=== PATIENT | female | born 1955 | race Two or more races ===

== ENCOUNTER → 2017-08-17 | Outpatient (CLI) | payer OTHER ==
[~2017-08-17] MED LIST: INSU100V13 SC
[2017-08-17 09:45] LABS: HEMATOCRIT 45.9 % (34.6-47.8); HEMOGLOBIN 15.8 g/dL (11.7-16.4); WHITE BLOOD COUNT 7.7 x10^3/uL (3.4-10)
[2017-08-17 09:56] LABS: ASPARTATE AMINO TRANSFERASE 14 U/L (15-37); BLOOD UREA NITROGEN 23 mg/dL (7-18)
== END | disposition home or self-care (01) ==
LOC: LAB 09:21
PROVIDERS: ATTEND Family Medicine
DX: E11.40 Type 2 diabetes mellitus with diabetic neuropathy, unspecified (principal); E55.9 Vitamin D deficiency, unspecified; E78.5 Hyperlipidemia, unspecified; I10 Essential (primary) hypertension; R53.83 Other fatigue
CPT/HCPCS: 36415; 80053; 80061; 82043; 82306; 83036; 84443; 85025

== ENCOUNTER 2017-12-14 22:54 | Emergency (ER) | payer OTHER ==
[~2017-12-14] VITALS: Ht 149.9 cm; Wt 60.8 kg
[2017-12-14] MEDS ORDERED: ACETAMINOPHEN 325 MG TABLET ONE (23:29)
[2017-12-14] MEDS ORDERED: ACETAMINOPHEN 500 MG TABLET PO ONE (23:30)
[2017-12-14 23:33] LABS: RAPID INFLUENZA A Negative (Negative); RAPID INFLUENZA B Negative (Negative)
[2017-12-14 23:38] LABS: BASOPHILS # (AUTO) 0.02 x10^3/uL (0-0.1); BASOPHILS % (AUTO) 0 % (0-1); EOSINOPHILS # (AUTO) 0.02 x10^3/uL (0-0.4); EOSINOPHILS % (AUTO) 0 % (1-7); LYMPHOCYTES # (AUTO) 1.28 x10^3/uL (1-3.4); LYMPHOCYTES % (AUTO) 29 % (22-44); MD NO; MEAN CORPUSCULAR HEMOGLOBIN 30.6 pg (27.0-34.8); MEAN CORPUSCULAR HGB CONC 34.8 g/dL (32.4-35.8); MEAN CORPUSCULAR VOLUME 87.9 fL (80-100); MEAN PLATELET VOLUME 7.9 fL (7.4-10.4); MONOCYTES # (AUTO) 0.46 x10^3/uL (0.2-0.8); MONOCYTES % (AUTO) 10 % (2-9); NEUTROPHILS # (AUTO) 2.62 x10^3/uL (1.8-6.8); NEUTROPHILS % (AUTO) 60 % (42-75); PLATELET COUNT 213 x10^3/uL (130-400); RED BLOOD COUNT 4.71 x10^6/uL (3.82-5.3); RED CELL DISTRIBUTION WIDTH 12.7 % (9.6-15.2)
[2017-12-14 23:48] LABS: ALBUMIN 3.1 g/dL (3.4-5.0); ANION GAP 14 mmol/L (5-15); CALCIUM 8.4 mg/dL (8.5-10.1); CHLORIDE 103 mmol/L (98-107); CREATININE 0.75 mg/dL (0.55-1.02)
[2017-12-15] MEDS ORDERED: INSULIN REGULAR 100 UNITS/ML, 3ML VIAL ONE (00:18)
[2017-12-15 00:24] LABS: ACETONE, SERUM Moderate(40mg/dL) mg/dL (Negative)
[2017-12-15] MEDS ORDERED: SODIUM CHLORIDE FLUSH 10ML SYR IVF ONE (00:30)
[2017-12-15] MEDS ORDERED: SODIUM CHLORIDE 0.9% 1,000ML IVBOLUS ONE (00:30)
[2017-12-15] MEDS ORDERED: INSULIN REGULAR 100 UNITS/ML, 3ML VIAL IVPush ONE (00:30)
[2017-12-15 01:59] VITALS: BP 105/50
== END 2017-12-15 02:01 | disposition home or self-care (01) ==
LOC: ED 23:59
DX: B34.9 Viral infection, unspecified (principal); E11.65 Type 2 diabetes mellitus with hyperglycemia
CPT/HCPCS: 36415; 71046; 80048; 82010; 82040; 82800; 82962; 85025; 87400; 93005; 96361; 96374; 99285; J7030

== ENCOUNTER → 2017-12-20 | Outpatient (CLI) | payer OTHER | END | disposition home or self-care (01) | LOC: CVU 07:35 | PROVIDERS: ATTEND Internal Medicine Cardiovascular Disease | DX: I10 Essential (primary) hypertension (principal); E11.9 Type 2 diabetes mellitus without complications | CPT/HCPCS: 93306 ==

== ENCOUNTER → 2018-01-10 | Outpatient (CLI) | payer OTHER ==
[2018-01-10 10:13] LABS: ALANINE AMINOTRANSFERASE 17 U/L (12-78); ALBUMIN 3.6 g/dL (3.4-5.0); ANION GAP 8 mmol/L (5-15); CALCIUM 8.4 mg/dL (8.5-10.1); CHLORIDE 104 mmol/L (98-107); CHOLESTEROL, TOTAL 199 mg/dL (140-239); CREATININE 0.75 mg/dL (0.55-1.02); TRIGLYCERIDES 145 mg/dL (50-200); VLDL CHOLESTEROL 29 mg/dL (0-25)
[2018-01-10 10:15] LABS: BASOPHILS # (AUTO) 0.03 x10^3/uL (0-0.1); BASOPHILS % (AUTO) 1 % (0-1); EOSINOPHILS # (AUTO) 0.07 x10^3/uL (0-0.4); EOSINOPHILS % (AUTO) 1 % (1-7); LYMPHOCYTES # (AUTO) 1.77 x10^3/uL (1-3.4); LYMPHOCYTES % (AUTO) 34 % (22-44); MD NO; MEAN CORPUSCULAR HEMOGLOBIN 30.6 pg (27.0-34.8); MEAN CORPUSCULAR HGB CONC 34.2 g/dL (32.4-35.8); MEAN CORPUSCULAR VOLUME 89.7 fL (80-100); MEAN PLATELET VOLUME 7.9 fL (7.4-10.4); MONOCYTES # (AUTO) 0.38 x10^3/uL (0.2-0.8); MONOCYTES % (AUTO) 7 % (2-9); NEUTROPHILS # (AUTO) 2.98 x10^3/uL (1.8-6.8); NEUTROPHILS % (AUTO) 57 % (42-75); PLATELET COUNT 261 x10^3/uL (130-400); RED BLOOD COUNT 4.68 x10^6/uL (3.82-5.3); RED CELL DISTRIBUTION WIDTH 13.4 % (9.6-15.2)
[2018-01-10 10:20] LABS: HEMOGLOBIN A1C 11.5 % (4.2-6.3)
[2018-01-10 10:24] LABS: ALKALINE PHOSPHATASE 89 U/L (45-117); BILIRUBIN,TOTAL 0.6 mg/dL (0.2-1.0); CHOL/HDL RATIO 3.8; HDL CHOL % 27 % (28-40); HDL CHOLESTEROL (DIRECT) 53 mg/dL (40-60); LDL CHOLESTEROL,CALCULATED 117 mg/dL (54-169); LDL/HDL RATIO 2.2 (0.5-3.0); TOTAL PROTEIN 7.3 g/dL (6.4-8.2)
== END | disposition home or self-care (01) ==
LOC: LAB 09:45
PROVIDERS: ATTEND Family Medicine
DX: E11.40 Type 2 diabetes mellitus with diabetic neuropathy, unspecified (principal); I10 Essential (primary) hypertension; E78.5 Hyperlipidemia, unspecified; R53.83 Other fatigue; Z79.4 Long term (current) use of insulin
CPT/HCPCS: 36415; 80053; 80061; 82043; 83036; 84443; 85025

== ENCOUNTER 2018-05-25 20:16 | Emergency (ER) | payer OTHER ==
[~2018-05-25] VITALS: Ht 154.9 cm; Wt 62.4 kg
[2018-05-25] MEDS ORDERED: GEMF600T3 PO (20:28)
[2018-05-25] MEDS ORDERED: INSU100I13 SQ-INSULIN (20:28)
[2018-05-25] MEDS ORDERED: GLIP-142 PO (20:28)
[2018-05-25] MEDS ORDERED: GABA300C10 PO (20:28)
[2018-05-25] MEDS ORDERED: METF500T5 PO (20:28)
[2018-05-25] MEDS ORDERED: OMNIPAQUE 350 MG/ML, 100ML BOTTLE ONE (20:50)
[2018-05-25 20:59] LABS: BASOPHILS # (AUTO) 0.03 x10^3/uL (0-0.1); BASOPHILS % (AUTO) 1 % (0-1); EOSINOPHILS # (AUTO) 0.05 x10^3/uL (0-0.4); EOSINOPHILS % (AUTO) 1 % (1-7); LYMPHOCYTES # (AUTO) 2.58 x10^3/uL (1-3.4); LYMPHOCYTES % (AUTO) 38 % (22-44); MD NO; MEAN CORPUSCULAR HEMOGLOBIN 30.5 pg (27.0-34.8); MEAN CORPUSCULAR HGB CONC 34.5 g/dL (32.4-35.8); MEAN CORPUSCULAR VOLUME 88.4 fL (80-100); MONOCYTES # (AUTO) 0.38 x10^3/uL (0.2-0.8); MONOCYTES % (AUTO) 6 % (2-9); NEUTROPHILS # (AUTO) 3.78 x10^3/uL (1.8-6.8); NEUTROPHILS % (AUTO) 55 % (42-75); PLATELET COUNT 249 x10^3/uL (130-400); RED BLOOD COUNT 4.33 x10^6/uL (3.82-5.3); RED CELL DISTRIBUTION WIDTH 12.8 % (9.6-15.2)
[2018-05-25] MEDS ORDERED: SODIUM CHLORIDE FLUSH 10ML SYR IVF ONE (21:00)
[2018-05-25 21:11] LABS: ALANINE AMINOTRANSFERASE 19 U/L (12-78); ALBUMIN 3.5 g/dL (3.4-5.0); ANION GAP 11 mmol/L (5-15); CALCIUM 9.1 mg/dL (8.5-10.1); CHLORIDE 100 mmol/L (98-107); CREATININE 0.83 mg/dL (0.55-1.02)
[2018-05-25 21:13] LABS: ALKALINE PHOSPHATASE 99 U/L (45-117); BILIRUBIN,TOTAL 0.4 mg/dL (0.2-1.0); TOTAL PROTEIN 7.4 g/dL (6.4-8.2)
[2018-05-25 21:39] LABS: MICROSCOPIC AUTO
[2018-05-25 21:40] LABS: CULTURE INDICATED? YES
[2018-05-25 21:54] VITALS: BP 124/78
== END 2018-05-25 22:20 | disposition home or self-care (01) ==
LOC: ED 21:47
DX: E11.65 Type 2 diabetes mellitus with hyperglycemia (principal); Z79.84 Long term (current) use of oral hypoglycemic drugs; Z88.6 Allergy status to analgesic agent
CPT/HCPCS: 36415; 70450; 70496; 70498; 80053; 81001; 85025; 87086; 93005; 99285; Q9967

== ENCOUNTER → 2018-06-03 | Outpatient (CLI) | payer OTHER ==
[~2018-06-03] MED LIST changes: +GABA300C10 PO; +GEMF600T3 PO; +GLIP-142 PO; +INSU100I13 SC; +INSU100I13 SQ-INSULIN; +METF500T5 PO
[2018-06-03 11:15] LABS: ALANINE AMINOTRANSFERASE 19 U/L (12-78); ALBUMIN 3.4 g/dL (3.4-5.0); ANION GAP 9 mmol/L (5-15); CALCIUM 9.1 mg/dL (8.5-10.1); CHLORIDE 105 mmol/L (98-107)
[2018-06-03 11:25] LABS: ALKALINE PHOSPHATASE 88 U/L (45-117); BILIRUBIN,TOTAL 0.5 mg/dL (0.2-1.0); TOTAL PROTEIN 7.3 g/dL (6.4-8.2)
[2018-06-03 11:54] LABS: BASOPHILS # (AUTO) 0.03 x10^3/uL (0-0.1); BASOPHILS % (AUTO) 0 % (0-1); EOSINOPHILS # (AUTO) 0.05 x10^3/uL (0-0.4); EOSINOPHILS % (AUTO) 1 % (1-7); LYMPHOCYTES # (AUTO) 2.26 x10^3/uL (1-3.4); LYMPHOCYTES % (AUTO) 37 % (22-44); MD NO; MEAN CORPUSCULAR HEMOGLOBIN 30.3 pg (27.0-34.8); MEAN CORPUSCULAR HGB CONC 34.5 g/dL (32.4-35.8); MEAN CORPUSCULAR VOLUME 87.7 fL (80-100); MEAN PLATELET VOLUME 8.2 fL (7.4-10.4); MONOCYTES # (AUTO) 0.33 x10^3/uL (0.2-0.8); MONOCYTES % (AUTO) 5 % (2-9); NEUTROPHILS # (AUTO) 3.47 x10^3/uL (1.8-6.8); NEUTROPHILS % (AUTO) 57 % (42-75); PLATELET COUNT 256 x10^3/uL (130-400); RED BLOOD COUNT 4.55 x10^6/uL (3.82-5.3)
== END | disposition home or self-care (01) ==
LOC: LAB 10:49
PROVIDERS: ATTEND Otolaryngology Facial Plastic Surgery
DX: R42 Dizziness and giddiness (principal); E11.65 Type 2 diabetes mellitus with hyperglycemia; Z79.84 Long term (current) use of oral hypoglycemic drugs
CPT/HCPCS: 36415; 80053; 84443; 85025

== ENCOUNTER 2018-06-06 13:02 | Emergency (ER) | payer OTHER ==
[~2018-06-06] VITALS: Ht 154.9 cm; Wt 63.4 kg
[~2018-06-06 13:02] MED LIST changes: -INSU100I13 SC
[2018-06-06 14:18] LABS: BASOPHILS # (AUTO) 0.02 x10^3/uL (0-0.1); BASOPHILS % (AUTO) 0 % (0-1); EOSINOPHILS # (AUTO) 0.05 x10^3/uL (0-0.4); EOSINOPHILS % (AUTO) 1 % (1-7); LYMPHOCYTES # (AUTO) 1.87 x10^3/uL (1-3.4); LYMPHOCYTES % (AUTO) 32 % (22-44); MD NO; MEAN CORPUSCULAR HEMOGLOBIN 29.7 pg (27.0-34.8); MEAN CORPUSCULAR HGB CONC 33.8 g/dL (32.4-35.8); MEAN PLATELET VOLUME 8.1 fL (7.4-10.4); MONOCYTES # (AUTO) 0.37 x10^3/uL (0.2-0.8); MONOCYTES % (AUTO) 6 % (2-9); NEUTROPHILS # (AUTO) 3.59 x10^3/uL (1.8-6.8); NEUTROPHILS % (AUTO) 61 % (42-75); PLATELET COUNT 255 x10^3/uL (130-400); RED BLOOD COUNT 4.41 x10^6/uL (3.82-5.3); RED CELL DISTRIBUTION WIDTH 13.1 % (9.6-15.2)
[2018-06-06 14:26] LABS: ANION GAP 6 mmol/L (5-15); CALCIUM 9.3 mg/dL (8.5-10.1); CHLORIDE 105 mmol/L (98-107); CREATININE 0.82 mg/dL (0.55-1.02)
[2018-06-06] MEDS ORDERED: DIAZEPAM 5 MG TABLET PO ONE (14:30)
[2018-06-06] MEDS ORDERED: DIAZEPAM 5 MG TABLET ONE (15:05)
[2018-06-06] MEDS ORDERED: INSU100I13 SC (15:09)
[2018-06-06 15:46] VITALS: BP 137/74
== END 2018-06-06 15:56 | disposition home or self-care (01) ==
LOC: ED 15:50
DX: R42 Dizziness and giddiness (principal); E11.65 Type 2 diabetes mellitus with hyperglycemia
CPT/HCPCS: 36415; 70551; 80048; 85025; 93005; 99285

== ENCOUNTER → 2018-08-20 | Outpatient (CLI) | payer OTHER ==
[~2018-08-20] MED LIST changes: -GEMF600T3 PO; +GEMF600T4 PO; +INSU100I13 SC; +METF500T17 PO; -METF500T5 PO
[2018-08-20 08:27] LABS: ALANINE AMINOTRANSFERASE 21 U/L (12-78); ALBUMIN 3.8 g/dL (3.4-5.0); CHOLESTEROL, TOTAL 130 mg/dL (140-239); TRIGLYCERIDES 185 mg/dL (50-200); VLDL CHOLESTEROL 37 mg/dL (0-25)
[2018-08-20 08:29] LABS: ALKALINE PHOSPHATASE 78 U/L (45-117); BILIRUBIN,TOTAL 0.3 mg/dL (0.2-1.0); CHOL/HDL RATIO 3.3; HDL CHOL % 30 % (28-40); HDL CHOLESTEROL (DIRECT) 39 mg/dL (40-60); LDL CHOLESTEROL,CALCULATED 54 mg/dL (54-169); LDL/HDL RATIO 1.4 (0.5-3.0); TOTAL PROTEIN 7.7 g/dL (6.4-8.2)
[2018-08-20 08:30] LABS: BILIRUBIN, DIRECT < 0.1 mg/dL (0.1-0.2); BILIRUBIN,INDIRECT 0.2 mg/dL (0.0-2.0)
[2018-08-20 09:06] LABS: HEMOGLOBIN A1C 6.9 % (4.2-6.3)
== END | disposition home or self-care (01) ==
LOC: LAB 08:00
PROVIDERS: ATTEND Nurse Practitioner Primary Care
DX: Z12.4 Encounter for screening for malignant neoplasm of cervix (principal); Z12.39 Encounter for other screening for malignant neoplasm of breast; Z12.11 Encounter for screening for malignant neoplasm of colon; Z13.220 Encounter for screening for lipoid disorders; E11.9 Type 2 diabetes mellitus without complications; R42 Dizziness and giddiness; M62.81 Muscle weakness (generalized); E55.9 Vitamin D deficiency, unspecified; R53.83 Other fatigue
CPT/HCPCS: 36415; 80061; 80076; 83036

== ENCOUNTER → 2018-10-10 | Outpatient (CLI) | payer OTHER | END | disposition home or self-care (01) | LOC: LAB 07:59 | PROVIDERS: ATTEND Internal Medicine Endocrinology, Diabetes & Metabolism | DX: E11.65 Type 2 diabetes mellitus with hyperglycemia (principal) | CPT/HCPCS: 36415; 82043; 82570; 82947; 84681 ==

== ENCOUNTER → 2018-11-21 | Outpatient (CLI) | payer OTHER ==
[~2018-11-21] MED LIST changes: +GADOBUTROL 7.5 MMOL/7.5 ML PFS ONE; -GEMF600T4 PO; +GEMF600T8 PO
== END | disposition home or self-care (01) ==
LOC: CFH 08:40
PROVIDERS: ATTEND Specialist
DX: I63.89 Other cerebral infarction (principal); J34.89 Other specified disorders of nose and nasal sinuses
CPT/HCPCS: 70553; A9585

== ENCOUNTER 2019-02-07 09:55 | Emergency (ER) | payer OTHER ==
[~2019-02-07] VITALS: Ht 154.9 cm; Wt 62.9 kg
[~2019-02-07 09:55] MED LIST changes: -GADOBUTROL 7.5 MMOL/7.5 ML PFS ONE
[2019-02-07 10:45] VITALS: BP 138/66
[2019-02-07] MEDS ORDERED: ONDANSETRON ODT 4 MG ONE (10:48)
[2019-02-07 10:54] LABS: ANION GAP 7 mmol/L (5-15); CALCIUM 9.5 mg/dL (8.5-10.1); CHLORIDE 103 mmol/L (98-107); CREATININE 0.72 mg/dL (0.55-1.02)
[2019-02-07 10:58] LABS: MICROSCOPIC AUTO
[2019-02-07 10:59] LABS: CULTURE INDICATED? NO
[2019-02-07] MEDS ORDERED: ONDANSETRON ODT 4 MG PO ONE (11:00)
[2019-02-07 11:36] LABS: BASOPHILS # (AUTO) 0.03 x10^3/uL (0-0.1); BASOPHILS % (AUTO) 1 % (0-1); EOSINOPHILS # (AUTO) 0.04 x10^3/uL (0-0.4); EOSINOPHILS % (AUTO) 1 % (1-7); LYMPHOCYTES # (AUTO) 1.64 x10^3/uL (1-3.4); LYMPHOCYTES % (AUTO) 25 % (22-44); MD NO; MEAN CORPUSCULAR HGB CONC 33.5 g/dL (32.4-35.8); MEAN CORPUSCULAR VOLUME 86.8 fL (80-100); MONOCYTES # (AUTO) 0.24 x10^3/uL (0.2-0.8); MONOCYTES % (AUTO) 4 % (2-9); NEUTROPHILS % (AUTO) 70 % (42-75); PLATELET COUNT 282 x10^3/uL (130-400); RED BLOOD COUNT 4.38 x10^6/uL (3.82-5.3); RED CELL DISTRIBUTION WIDTH 12.9 % (9.6-15.2)
--- NOTE | 2019-02-07 12:34 | NUR ---
DC RN ONLY: Patient/Caregiver given discharge instructions and they have confirmed that they understand the instructions. Patient ambulatory with steady gait.
== END 2019-02-07 12:37 | disposition home or self-care (01) ==
LOC: ED 11:00
DX: H81.392 Other peripheral vertigo, left ear (principal); H81.12 Benign paroxysmal vertigo, left ear; E11.9 Type 2 diabetes mellitus without complications
CPT/HCPCS: 36415; 80048; 81001; 82040; 85025; 93005; 99284; Q0162

== ENCOUNTER 2019-02-20 06:07 | Outpatient (CLI) | payer OTHER ==
[2019-02-20 07:14] LABS: ALBUMIN 3.8 g/dL (3.4-5.0); ANION GAP 7 mmol/L (5-15); CALCIUM 8.5 mg/dL (8.5-10.1); CHLORIDE 108 mmol/L (98-107)
[2019-02-20 07:17] LABS: ALANINE AMINOTRANSFERASE 19 U/L (12-78); ALKALINE PHOSPHATASE 89 U/L (45-117); BILIRUBIN,TOTAL 0.2 mg/dL (0.2-1.0); CHOL/HDL RATIO 3.6; CHOLESTEROL, TOTAL 172 mg/dL (140-239); HDL CHOL % 28 % (28-40); HDL CHOLESTEROL (DIRECT) 48 mg/dL (40-60); LDL CHOLESTEROL,CALCULATED 88 mg/dL (54-169); LDL/HDL RATIO 1.8 (0.5-3.0); TOTAL PROTEIN 7.4 g/dL (6.4-8.2); TRIGLYCERIDES 180 mg/dL (50-200); VLDL CHOLESTEROL 36 mg/dL (0-25)
[2019-02-20 07:18] LABS: BILIRUBIN, DIRECT < 0.1 mg/dL (0.1-0.2)
== END 2019-02-20 23:59 | disposition home or self-care (01) ==
LOC: LAB 06:07
PROVIDERS: ATTEND Nurse Practitioner Primary Care
DX: Z13.220 Encounter for screening for lipoid disorders (principal); Z12.11 Encounter for screening for malignant neoplasm of colon; Z12.4 Encounter for screening for malignant neoplasm of cervix; Z12.39 Encounter for other screening for malignant neoplasm of breast; R53.83 Other fatigue; E11.9 Type 2 diabetes mellitus without complications; M62.81 Muscle weakness (generalized); E55.9 Vitamin D deficiency, unspecified; E83.42 Hypomagnesemia
CPT/HCPCS: 36415; 80053; 80061; 82248

== ENCOUNTER → 2019-05-01 | Outpatient (CLI) | payer OTHER ==
[~2019-05-01] MED LIST changes: +OMNIPAQUE 350 MG/ML, 100ML BOTTLE ONE
== END | disposition home or self-care (01) ==
LOC: CFH 09:08
PROVIDERS: ATTEND Specialist
DX: I63.89 Other cerebral infarction (principal); I65.23 Occlusion and stenosis of bilateral carotid arteries
CPT/HCPCS: 70496; 82565; Q9967

== ENCOUNTER 2019-05-27 07:20 | Outpatient (CLI) | payer OTHER | END 2019-05-27 23:59 | disposition home or self-care (01) | LOC: LAB 07:20 | PROVIDERS: ATTEND Internal Medicine Endocrinology, Diabetes & Metabolism | DX: Z13.220 Encounter for screening for lipoid disorders (principal); E11.9 Type 2 diabetes mellitus without complications; R27.9 Unspecified lack of coordination; R53.83 Other fatigue; E55.9 Vitamin D deficiency, unspecified; Z12.11 Encounter for screening for malignant neoplasm of colon; M62.81 Muscle weakness (generalized); I49.9 Cardiac arrhythmia, unspecified | CPT/HCPCS: 36415; 80061; 80076; 82607 ==

== ENCOUNTER 2019-06-10 07:13 | Outpatient (CLI) | payer OTHER | END 2019-06-10 23:59 | disposition home or self-care (01) | LOC: LAB 07:13 | PROVIDERS: ATTEND Internal Medicine Endocrinology, Diabetes & Metabolism | DX: R42 Dizziness and giddiness (principal) | CPT/HCPCS: 36415; 82024; 82533 ==

== ENCOUNTER 2019-08-24 09:33 | Outpatient (CLI) | payer OTHER ==
[~2019-08-24 09:33] MED LIST changes: -OMNIPAQUE 350 MG/ML, 100ML BOTTLE ONE
== END 2019-08-24 23:59 | disposition home or self-care (01) ==
LOC: RAD 09:33
PROVIDERS: ATTEND Internal Medicine
DX: R11.2 Nausea with vomiting, unspecified (principal)
CPT/HCPCS: 78264; A9541

== ENCOUNTER → 2019-09-24 | Outpatient (CLI) | payer OTHER ==
[2019-09-24 07:27] LABS: BASOPHILS # (AUTO) 0.02 x10^3/uL (0-0.1); BASOPHILS % (AUTO) 0 % (0-1); EOSINOPHILS # (AUTO) 0.04 x10^3/uL (0-0.4); EOSINOPHILS % (AUTO) 1 % (1-7); LYMPHOCYTES # (AUTO) 1.64 x10^3/uL (1-3.4); LYMPHOCYTES % (AUTO) 31 % (22-44); MD NO; MEAN CORPUSCULAR HEMOGLOBIN 29.1 pg (27.0-34.8); MEAN CORPUSCULAR HGB CONC 33.4 g/dL (32.4-35.8); MEAN CORPUSCULAR VOLUME 87.1 fL (80-100); MEAN PLATELET VOLUME 7.8 fL (7.4-10.4); MONOCYTES # (AUTO) 0.34 x10^3/uL (0.2-0.8); MONOCYTES % (AUTO) 6 % (2-9); NEUTROPHILS # (AUTO) 3.27 x10^3/uL (1.8-6.8); NEUTROPHILS % (AUTO) 62 % (42-75); PLATELET COUNT 250 x10^3/uL (130-400); RED BLOOD COUNT 4.89 x10^6/uL (3.82-5.3); RED CELL DISTRIBUTION WIDTH 14.2 % (9.6-15.2)
[2019-09-24 07:36] LABS: ALANINE AMINOTRANSFERASE 19 U/L (12-78); ALBUMIN 3.9 g/dL (3.4-5.0); ANION GAP 3 mmol/L (5-15); CHLORIDE 102 mmol/L (98-107); CREATININE 0.75 mg/dL (0.55-1.02)
[2019-09-24 07:39] LABS: ALKALINE PHOSPHATASE 106 U/L (45-117); BILIRUBIN,TOTAL 0.5 mg/dL (0.2-1.0); TOTAL PROTEIN 7.9 g/dL (6.4-8.2)
== END | disposition home or self-care (01) ==
LOC: LAB 07:13
PROVIDERS: ATTEND Nurse Practitioner
DX: E78.5 Hyperlipidemia, unspecified (principal); E11.65 Type 2 diabetes mellitus with hyperglycemia; F10.20 Alcohol dependence, uncomplicated
CPT/HCPCS: 36415; 80053; 82043; 82570; 85025

== ENCOUNTER 2019-10-06 23:44 | Emergency (ER) | payer OTHER ==
[~2019-10-06] VITALS: Ht 154.9 cm; Wt 62.2 kg
[2019-10-07] MEDS ORDERED: ONDANSETRON 2MG/ML, 2ML ONE (00:11)
[2019-10-07 00:23] LABS: BASOPHILS # (AUTO) 0.02 x10^3/uL (0-0.1); BASOPHILS % (AUTO) 0 % (0-1); EOSINOPHILS # (AUTO) 0.07 x10^3/uL (0-0.4); EOSINOPHILS % (AUTO) 1 % (1-7); LYMPHOCYTES # (AUTO) 1.87 x10^3/uL (1-3.4); LYMPHOCYTES % (AUTO) 33 % (22-44); MD NO; MEAN CORPUSCULAR HEMOGLOBIN 29.6 pg (27.0-34.8); MEAN CORPUSCULAR HGB CONC 33.5 g/dL (32.4-35.8); MEAN CORPUSCULAR VOLUME 88.6 fL (80-100); MEAN PLATELET VOLUME 8.6 fL (7.4-10.4); MONOCYTES # (AUTO) 0.37 x10^3/uL (0.2-0.8); MONOCYTES % (AUTO) 7 % (2-9); NEUTROPHILS # (AUTO) 3.39 x10^3/uL (1.8-6.8); NEUTROPHILS % (AUTO) 59 % (42-75); PLATELET COUNT 244 x10^3/uL (130-400); RED BLOOD COUNT 4.42 x10^6/uL (3.82-5.3); RED CELL DISTRIBUTION WIDTH 13.3 % (9.6-15.2)
[2019-10-07] MEDS ORDERED: SODIUM CHLORIDE 0.9% 1,000ML IVBOLUS ONE (00:30)
[2019-10-07] MEDS ORDERED: ONDANSETRON 2MG/ML, 2ML IVPush ONE (00:30)
[2019-10-07] MEDS ORDERED: SODIUM CHLORIDE FLUSH 10ML SYR IVF ONE (00:30)
[2019-10-07 00:32] LABS: MICROSCOPIC AUTO
[2019-10-07 00:34] LABS: ALANINE AMINOTRANSFERASE 26 U/L (12-78); ALBUMIN 3.6 g/dL (3.4-5.0); ANION GAP 8 mmol/L (5-15); CALCIUM 8.8 mg/dL (8.5-10.1); CHLORIDE 101 mmol/L (98-107); CREATININE 0.96 mg/dL (0.55-1.02)
[2019-10-07 00:37] LABS: ALKALINE PHOSPHATASE 129 U/L (45-117); BILIRUBIN,TOTAL 0.3 mg/dL (0.2-1.0); TOTAL PROTEIN 7.4 g/dL (6.4-8.2)
[2019-10-07 00:44] LABS: CULTURE INDICATED? YES
[2019-10-07] MEDS ORDERED: CEFTRIAXONE PMX 1GM/50ML 50 ML ONE (01:21)
[2019-10-07] MEDS ORDERED: CEFTRIAXONE PMX 1GM/50ML 50 ML IV ONE (01:30)
[2019-10-07] MEDS ORDERED: INSULIN REGULAR 100 UNITS/ML, 3ML VIAL SQ-INSULIN ONE (01:30)
[2019-10-07 01:32] VITALS: BP 122/65
[2019-10-07] MEDS ORDERED: INSULIN SINGLE DOSE, ER ONE ×2 (01:37→01:45)
--- NOTE | 2019-10-07 01:47 | NUR ---
ross rn: meds given per emar, insulin verified with angel arboleda, pt has no other needs. vss/entered. family at bs, updated poc with dc after antibxts.
== END 2019-10-07 02:21 | disposition home or self-care (01) ==
LOC: ED 10-07 02:10
DX: N30.00 Acute cystitis without hematuria (principal); E11.65 Type 2 diabetes mellitus with hyperglycemia; R42 Dizziness and giddiness
CPT/HCPCS: 36415; 80053; 81001; 82962; 85025; 87077; 87086; 87186; 93005; 96361; 96365; 96372; 99284; J0696; J1815; J7030; 96374

== ENCOUNTER → 2019-10-15 | Outpatient (CLI) | payer OTHER | END | disposition home or self-care (01) | LOC: CFH 10:04 | PROVIDERS: ATTEND Nurse Practitioner Primary Care | DX: M81.8 Other osteoporosis without current pathological fracture (principal) | CPT/HCPCS: 77080 ==

== ENCOUNTER 2020-01-08 07:15 | Outpatient (CLI) | payer OTHER ==
[2020-01-08 07:58] LABS: BASOPHILS # (AUTO) 0.02 x10^3/uL (0-0.1); BASOPHILS % (AUTO) 0 % (0-1); EOSINOPHILS # (AUTO) 0.04 x10^3/uL (0-0.4); EOSINOPHILS % (AUTO) 1 % (1-7); LYMPHOCYTES # (AUTO) 1.52 x10^3/uL (1-3.4); LYMPHOCYTES % (AUTO) 32 % (22-44); MD NO; MEAN CORPUSCULAR HEMOGLOBIN 29.4 pg (27.0-34.8); MEAN CORPUSCULAR HGB CONC 33.8 g/dL (32.4-35.8); MEAN CORPUSCULAR VOLUME 86.9 fL (80-100); MEAN PLATELET VOLUME 8.3 fL (7.4-10.4); MONOCYTES # (AUTO) 0.27 x10^3/uL (0.2-0.8); MONOCYTES % (AUTO) 6 % (2-9); NEUTROPHILS # (AUTO) 2.91 x10^3/uL (1.8-6.8); NEUTROPHILS % (AUTO) 61 % (42-75); PLATELET COUNT 239 x10^3/uL (130-400); RED BLOOD COUNT 4.86 x10^6/uL (3.82-5.3); RED CELL DISTRIBUTION WIDTH 12.6 % (9.6-15.2)
[2020-01-08 08:05] LABS: ALBUMIN 3.6 g/dL (3.4-5.0); ANION GAP 10 mmol/L (5-15); CALCIUM 8.7 mg/dL (8.5-10.1); CHLORIDE 102 mmol/L (98-107); CHOLESTEROL, TOTAL 176 mg/dL (140-239)
[2020-01-08 08:11] LABS: CULTURE INDICATED? YES; MICROSCOPIC INDICATED
[2020-01-08 08:31] LABS: % IRON SATURATION 15 % (20-55); ALANINE AMINOTRANSFERASE 16 U/L (12-78); ALKALINE PHOSPHATASE 100 U/L (45-117); BILIRUBIN,TOTAL 0.4 mg/dL (0.2-1.0); CHOL/HDL RATIO 3.5; CREATININE 0.77 mg/dL (0.55-1.02); FOLATE LEVEL 19.1 ng/mL (3.1-17.5); FREE T4 (FREE THYROXINE) 1.31 ng/dL (0.76-1.46); HDL CHOL % 28 % (28-40); HDL CHOLESTEROL (DIRECT) 50 mg/dL (40-60); IRON LEVEL 54 mcg/dL (50-170); LDL CHOLESTEROL,CALCULATED 102 mg/dL (54-169); TOTAL IRON BINDING CAPACITY 359 mcg/dL (250-450); TOTAL PROTEIN 7.5 g/dL (6.4-8.2); TRANSFERRIN 268 mg/dL (200-360); TRIGLYCERIDES 122 mg/dL (50-200); VLDL CHOLESTEROL 24 mg/dL (0-25)
== END 2020-01-08 23:59 | disposition home or self-care (01) ==
LOC: LAB 07:15
PROVIDERS: ATTEND Nurse Practitioner Primary Care
DX: Z23 Encounter for immunization (principal); E11.65 Type 2 diabetes mellitus with hyperglycemia; E78.2 Mixed hyperlipidemia; E55.9 Vitamin D deficiency, unspecified; I95.9 Hypotension, unspecified; R53.83 Other fatigue; R42 Dizziness and giddiness; R53.1 Weakness; Z79.899 Other long term (current) drug therapy; Z79.52 Long term (current) use of systemic steroids
CPT/HCPCS: 36415; 80053; 80061; 81001; 82306; 82607; 82728; 82746; 83036; 83540; 83550; 84207; 84425; 84439; 84443; 84466; 85025; 86376; 86800; 86803; 87086

== ENCOUNTER 2020-01-10 20:44 | Emergency (ER) | payer OTHER ==
[~2020-01-10] VITALS: Ht 154.9 cm; Wt 61.0 kg
[2020-01-10] MEDS ORDERED: SODIUM CHLORIDE 0.9% 1,000ML IVBOLUS ONE (21:30)
[2020-01-10] MEDS ORDERED: MECLIZINE CHEWABLE 25 MG TAB PO ONE (21:30)
[2020-01-10] MEDS ORDERED: ONDANSETRON 2MG/ML, 2ML IVPush ONE (21:30)
[2020-01-10] MEDS ORDERED: ONDANSETRON 2MG/ML, 2ML ONE (21:33)
[2020-01-10] MEDS ORDERED: MECLIZINE CHEWABLE 25 MG TAB ONE (21:34)
[2020-01-10 21:43] LABS: BASOPHILS # (AUTO) 0.01 x10^3/uL (0-0.1); BASOPHILS % (AUTO) 0 % (0-1); EOSINOPHILS # (AUTO) 0.03 x10^3/uL (0-0.4); EOSINOPHILS % (AUTO) 0 % (1-7); LYMPHOCYTES # (AUTO) 0.87 x10^3/uL (1-3.4); LYMPHOCYTES % (AUTO) 13 % (22-44); MD NO; MEAN CORPUSCULAR HEMOGLOBIN 29.3 pg (27.0-34.8); MEAN CORPUSCULAR HGB CONC 33.8 g/dL (32.4-35.8); MEAN CORPUSCULAR VOLUME 86.8 fL (80-100); MEAN PLATELET VOLUME 8.6 fL (7.4-10.4); MONOCYTES # (AUTO) 0.18 x10^3/uL (0.2-0.8); MONOCYTES % (AUTO) 3 % (2-9); NEUTROPHILS # (AUTO) 5.65 x10^3/uL (1.8-6.8); NEUTROPHILS % (AUTO) 84 % (42-75); PLATELET COUNT 210 x10^3/uL (130-400); RED BLOOD COUNT 4.89 x10^6/uL (3.82-5.3); RED CELL DISTRIBUTION WIDTH 12.7 % (9.6-15.2)
--- NOTE | 2020-01-10 21:48 | NUR ---
MEDICATED PER MAR, SAFETY AND FALL PRECAUTIONS IN PLACE, CALL LIGHT PLACED WITHIN REACH. FAMILY AT BEDSIDE.
[2020-01-10 21:50] LABS: ANION GAP 11 mmol/L (5-15); CALCIUM 8.8 mg/dL (8.5-10.1); CHLORIDE 101 mmol/L (98-107); CREATININE 0.69 mg/dL (0.55-1.02)
[2020-01-10 21:54] LABS: TROPONIN I < 0.015 ng/mL (0.000-0.045)
[2020-01-10] MEDS ORDERED: LISI2.5T PO (22:00)
[2020-01-10] MEDS ORDERED: GLIP10TA13 PO (22:00)
[2020-01-10] MEDS ORDERED: OMEP-110 PO (22:00)
[2020-01-10] MEDS ORDERED: INSU100V8 SQ (22:00)
[2020-01-10] MEDS ORDERED: ATOR20TA37 PO (22:00)
[2020-01-10 22:27] VITALS: BP 128/65
--- NOTE | 2020-01-10 22:27 | NUR ---
PT RESTING IN NO ACUTE DISTRESS, STATES SHE FEELS BETTER. VSS.
== END 2020-01-10 22:51 ==
LOC: ED 22:45
DX: R11.2 Nausea with vomiting, unspecified (principal); E86.0 Dehydration; H81.02 Meniere's disease, left ear; R42 Dizziness and giddiness; I10 Essential (primary) hypertension; E11.9 Type 2 diabetes mellitus without complications; E78.00 Pure hypercholesterolemia, unspecified; R94.31 Abnormal electrocardiogram [ECG] [EKG]
CPT/HCPCS: 80048; 82040; 82962; 84484; 85025; 93005; 96361; 96374; 99284; J2405; J7030

== ENCOUNTER → 2020-02-25 | Outpatient (CLI) | payer OTHER ==
[~2020-02-25] MED LIST changes: +ATOR20TA37 PO; +GLIP10TA13 PO; +INSU100V8 SQ; +LISI2.5T PO; +OMEP-110 PO
[2020-02-25 13:13] LABS: MICROSCOPIC INDICATED
[2020-02-25 13:15] LABS: CULTURE INDICATED? YES
== END | disposition home or self-care (01) ==
LOC: CFH 07:25
PROVIDERS: ATTEND Nurse Practitioner Primary Care
DX: Z13.220 Encounter for screening for lipoid disorders (principal); N39.0 Urinary tract infection, site not specified; E11.65 Type 2 diabetes mellitus with hyperglycemia; E78.2 Mixed hyperlipidemia; E55.9 Vitamin D deficiency, unspecified; I95.9 Hypotension, unspecified; R42 Dizziness and giddiness; R53.1 Weakness; Z79.52 Long term (current) use of systemic steroids; Z79.899 Other long term (current) drug therapy
CPT/HCPCS: 81001; 87077; 87086

== ENCOUNTER 2020-02-26 13:21 | Emergency (ER) | payer OTHER ==
[~2020-02-26] VITALS: Ht 154.9 cm; Wt 55.7 kg
[2020-02-26 13:24] VITALS: BP 151/71
[2020-02-26] MEDS ORDERED: CEFTRIAXONE PMX 1GM/50ML 50 ML ONE (14:12)
[2020-02-26] MEDS ORDERED: ONDANSETRON 2MG/ML, 2ML ONE (14:12)
[2020-02-26] MEDS ORDERED: MECLIZINE CHEWABLE 25 MG TAB ONE (14:12)
[2020-02-26] MEDS ORDERED: CEFTRIAXONE PMX 1GM/50ML 50 ML IV ONE (14:30)
[2020-02-26] MEDS ORDERED: SODIUM CHLORIDE 0.9% 1,000ML IVBOLUS ONE (14:30)
[2020-02-26] MEDS ORDERED: MECLIZINE CHEWABLE 25 MG TAB PO ONE (14:30)
[2020-02-26] MEDS ORDERED: ONDANSETRON 2MG/ML, 2ML IVPush ONE (14:30)
[2020-02-26 14:54] LABS: BASOPHILS # (AUTO) 0.01 x10^3/uL (0-0.1); BASOPHILS % (AUTO) 0 % (0-1); EOSINOPHILS # (AUTO) 0.02 x10^3/uL (0-0.4); EOSINOPHILS % (AUTO) 0 % (1-7); LYMPHOCYTES # (AUTO) 0.96 x10^3/uL (1-3.4); LYMPHOCYTES % (AUTO) 20 % (22-44); MD NO; MEAN CORPUSCULAR HEMOGLOBIN 29.4 pg (27.0-34.8); MEAN CORPUSCULAR HGB CONC 33.6 g/dL (32.4-35.8); MEAN CORPUSCULAR VOLUME 87.5 fL (80-100); MEAN PLATELET VOLUME 8.6 fL (7.4-10.4); MONOCYTES # (AUTO) 0.26 x10^3/uL (0.2-0.8); MONOCYTES % (AUTO) 5 % (2-9); NEUTROPHILS # (AUTO) 3.66 x10^3/uL (1.8-6.8); NEUTROPHILS % (AUTO) 75 % (42-75); PLATELET COUNT 237 x10^3/uL (130-400); RED BLOOD COUNT 4.71 x10^6/uL (3.82-5.3); RED CELL DISTRIBUTION WIDTH 14.3 % (9.6-15.2)
[2020-02-26 15:07] LABS: ALANINE AMINOTRANSFERASE 12 U/L (12-78); ALBUMIN 3.9 g/dL (3.4-5.0); ANION GAP 8 mmol/L (5-15); CALCIUM 9.1 mg/dL (8.5-10.1); CHLORIDE 101 mmol/L (98-107); CREATININE 0.91 mg/dL (0.55-1.02)
[2020-02-26 15:10] LABS: ALKALINE PHOSPHATASE 76 U/L (45-117); BILIRUBIN,TOTAL 0.5 mg/dL (0.2-1.0); TOTAL PROTEIN 7.9 g/dL (6.4-8.2)
[2020-02-26] MEDS ORDERED: ONDANSETRON ODT 4 MG PO ONE (16:00)
[2020-02-26] MEDS ORDERED: ONDANSETRON ODT 4 MG ONE (16:00)
== END 2020-02-26 16:12 | disposition home or self-care (01) ==
LOC: ED 14:02
DX: N30.00 Acute cystitis without hematuria (principal); R42 Dizziness and giddiness; R11.0 Nausea; R30.0 Dysuria; R94.31 Abnormal electrocardiogram [ECG] [EKG]; E11.9 Type 2 diabetes mellitus without complications
CPT/HCPCS: 36415; 80053; 83690; 85025; 93005; 96365; 96375; 99284; J0696; J2405; J7030; Q0162

== ENCOUNTER 2020-03-05 15:30 | Emergency (ER) | payer OTHER ==
[~2020-03-05] VITALS: Ht 154.9 cm; Wt 56.0 kg
--- NOTE | 2020-03-05 15:51 | NUR ---
CLINICAL NUTRITION MANAGER PRESENT DURING EKG PROCEDURE. PT TOLERATED WITH NO COMPLICATIONS. DAUGHTER PRESENT ALSO.
--- NOTE | 2020-03-05 16:00 | NUR ---
PT WHEELED INTO BR W/ DAUGHTER. PROVIDED URINE CUP.
--- NOTE | 2020-03-05 16:05 | NUR ---
URINE COLLECTED AND SENT TO LAB.
--- NOTE | 2020-03-05 16:08 | NUR ---
HEBER MIDDLETON IN ROOM FOR EVAL.
--- NOTE | 2020-03-05 16:12 | NUR ---
LAB IN ROOM.
[2020-03-05 16:19] LABS: MICROSCOPIC NOT IND
[2020-03-05 16:21] LABS: CULTURE INDICATED? NO
[2020-03-05 16:39] LABS: ALANINE AMINOTRANSFERASE 14 U/L (12-78); ALBUMIN 4.1 g/dL (3.4-5.0); ANION GAP 8 mmol/L (5-15); CALCIUM 9.1 mg/dL (8.5-10.1); CHLORIDE 101 mmol/L (98-107); CREATININE 0.89 mg/dL (0.55-1.02)
[2020-03-05 16:41] LABS: ALKALINE PHOSPHATASE 85 U/L (45-117); BILIRUBIN,TOTAL 0.4 mg/dL (0.2-1.0); TOTAL PROTEIN 8.1 g/dL (6.4-8.2)
[2020-03-05 16:45] LABS: BASOPHILS # (AUTO) 0.04 x10^3/uL (0-0.1); BASOPHILS % (AUTO) 1 % (0-1); EOSINOPHILS # (AUTO) 0.03 x10^3/uL (0-0.4); EOSINOPHILS % (AUTO) 1 % (1-7); LYMPHOCYTES # (AUTO) 1.73 x10^3/uL (1-3.4); LYMPHOCYTES % (AUTO) 33 % (22-44); MD NO; MEAN CORPUSCULAR HEMOGLOBIN 29.5 pg (27.0-34.8); MEAN CORPUSCULAR HGB CONC 33.7 g/dL (32.4-35.8); MEAN CORPUSCULAR VOLUME 87.4 fL (80-100); MEAN PLATELET VOLUME 7.9 fL (7.4-10.4); MONOCYTES % (AUTO) 6 % (2-9); NEUTROPHILS # (AUTO) 3.22 x10^3/uL (1.8-6.8); NEUTROPHILS % (AUTO) 61 % (42-75); PLATELET COUNT 304 x10^3/uL (130-400); RED BLOOD COUNT 4.91 x10^6/uL (3.82-5.3)
--- NOTE | 2020-03-05 16:48 | NUR ---
PT TO MRI.
[2020-03-05] MEDS ORDERED: MECLIZINE CHEWABLE 25 MG TAB ONE (16:57)
[2020-03-05] MEDS ORDERED: MECLIZINE CHEWABLE 25 MG TAB PO ONE (17:00)
--- NOTE | 2020-03-05 17:15 | NUR ---
PT BACK FROM MRI. MEDICATED PER EMAR.
[2020-03-05 17:16] VITALS: BP 136/67
--- NOTE | 2020-03-05 17:20 | NUR ---
ALL TESTS RESULTED. PT IS UP FOR RECHECK AT THIS TIME.
--- NOTE | 2020-03-05 17:48 | NUR ---
PT REPORTS RELIEF OF DIZZINESS AFTER MEDS.
--- NOTE | 2020-03-05 18:16 | NUR ---
PT RESTING ON [employer] W/ CALL LIGHT IN REACH. VSS. AWAITING DC PPWK.
--- NOTE | 2020-03-05 18:33 | NUR ---
HEBER MIDDLETON IN ROOM.
--- NOTE | 2020-03-05 18:38 | NUR ---
PT AMBULATED TO THE BR W/ A STEADY GAIT. DENIES DIZZINESS/SOB.
--- NOTE | 2020-03-05 18:58 | NUR ---
PT VERBALIZED UNDERSTANDING OF DC INSTRUCTIONS. WHEELED TO DC DESK W/ DAUGHTER.
== END 2020-03-05 19:00 | disposition home or self-care (01) ==
LOC: ED 18:07
DX: R42 Dizziness and giddiness (principal); E78.00 Pure hypercholesterolemia, unspecified; E11.9 Type 2 diabetes mellitus without complications
CPT/HCPCS: 36415; 70551; 80053; 81003; 85025; 93005; 99285

== ENCOUNTER → 2020-06-10 | Outpatient (CLI) | payer OTHER ==
[2020-06-10 12:51] LABS: BASOPHILS # (AUTO) 0.03 x10^3/uL (0-0.1); BASOPHILS % (AUTO) 1 % (0-1); EOSINOPHILS # (AUTO) 0.07 x10^3/uL (0-0.4); EOSINOPHILS % (AUTO) 1 % (1-7); LYMPHOCYTES # (AUTO) 1.43 x10^3/uL (1-3.4); LYMPHOCYTES % (AUTO) 27 % (22-44); MD NO; MEAN CORPUSCULAR HEMOGLOBIN 30.5 pg (27.0-34.8); MEAN CORPUSCULAR HGB CONC 33.7 g/dL (32.4-35.8); MEAN CORPUSCULAR VOLUME 90.4 fL (80-100); MEAN PLATELET VOLUME 9.2 fL (7.4-10.4); MONOCYTES # (AUTO) 0.34 x10^3/uL (0.2-0.8); MONOCYTES % (AUTO) 6 % (2-9); NEUTROPHILS # (AUTO) 3.48 x10^3/uL (1.8-6.8); NEUTROPHILS % (AUTO) 65 % (42-75); PLATELET COUNT 263 x10^3/uL (130-400); RED BLOOD COUNT 4.25 x10^6/uL (3.82-5.3); RED CELL DISTRIBUTION WIDTH 12.5 % (9.6-15.2)
[2020-06-10 13:10] LABS: CHLORIDE 107 mmol/L (98-107)
[2020-06-10 13:48] LABS: ALANINE AMINOTRANSFERASE 37 U/L (12-78); ALBUMIN 3.9 g/dL (3.4-5.0); ALKALINE PHOSPHATASE 171 U/L (45-117); ANION GAP 6 mmol/L (5-15); BILIRUBIN,TOTAL 0.3 mg/dL (0.2-1.0); CALCIUM 8.7 mg/dL (8.5-10.1); CREATININE 0.61 mg/dL (0.55-1.02); FOLATE LEVEL 18.7 ng/mL (3.1-17.5); TOTAL PROTEIN 7.7 g/dL (6.4-8.2)
== END | disposition home or self-care (01) ==
LOC: CFH 07:35
PROVIDERS: ATTEND Nurse Practitioner Primary Care
DX: R53.81 Other malaise (principal); R27.0 Ataxia, unspecified
CPT/HCPCS: 36415; 80053; 82306; 82390; 82542; 82607; 82746; 82784; 83516; 83519; 84155; 84165; 84207; 84425; 84446; 84630; 85025; 86255; 86256; 86376

== ENCOUNTER 2020-07-28 18:10 | Emergency (ER) | payer OTHER ==
[~2020-07-28] VITALS: Ht 152.4 cm; Wt 59.3 kg
--- NOTE | 2020-07-28 18:57 | NUR ---
UPSETTER SETTER UP: PT TO ROOM FROM LOBBY VIA WHEELCHAIR.
--- NOTE | 2020-07-28 19:08 | NUR ---
ALBIN VISITING HOUSEKEEPER AT BEDSIDE FOR ASSESSMENT AT THIS TIME
--- NOTE | 2020-07-28 19:09 | NUR ---
THIS IS A 64Y F THAT COMES IN FOR URINE BEING DIRTY WAS RECENTLY SWITCHED BETWEEN MEDICATIONS. PT CONNECTED TO MONITORING VSS NADN. CALL LIGHT IN REACH
[2020-07-28] MEDS ORDERED: SODIUM CHLORIDE 0.9% 1,000ML IVBOLUS ONE ×2 (19:30→20:30)
[2020-07-28] MEDS ORDERED: SODIUM CHLORIDE FLUSH 10ML SYR IVF ONE (19:30)
[2020-07-28 19:39] LABS: BASOPHILS # (AUTO) 0.03 x10^3/uL (0-0.1); BASOPHILS % (AUTO) 0 % (0-1); EOSINOPHILS # (AUTO) 0.04 x10^3/uL (0-0.4); EOSINOPHILS % (AUTO) 1 % (1-7); LYMPHOCYTES # (AUTO) 0.98 x10^3/uL (1-3.4); LYMPHOCYTES % (AUTO) 14 % (22-44); MD NO; MEAN CORPUSCULAR HGB CONC 32.7 g/dL (32.4-35.8); MEAN PLATELET VOLUME 8.1 fL (7.4-10.4); MONOCYTES # (AUTO) 0.34 x10^3/uL (0.2-0.8); MONOCYTES % (AUTO) 5 % (2-9); NEUTROPHILS # (AUTO) 5.74 x10^3/uL (1.8-6.8); NEUTROPHILS % (AUTO) 80 % (42-75); PLATELET COUNT 211 x10^3/uL (130-400); RED BLOOD COUNT 4.52 x10^6/uL (3.82-5.3); RED CELL DISTRIBUTION WIDTH 14.1 % (9.6-15.2)
--- NOTE | 2020-07-28 19:40 | NUR ---
PT UP TO RESTROOM FOR URINE SAMPLE DAUGHTER ASSISTING
[2020-07-28 19:52] LABS: ALANINE AMINOTRANSFERASE 25 U/L (12-78); ALBUMIN 3.2 g/dL (3.4-5.0); ANION GAP 9 mmol/L (5-15); CALCIUM 8.3 mg/dL (8.5-10.1); CHLORIDE 110 mmol/L (98-107); CREATININE 0.81 mg/dL (0.55-1.02)
[2020-07-28 19:56] LABS: ALKALINE PHOSPHATASE 121 U/L (45-117); BILIRUBIN,TOTAL 0.2 mg/dL (0.2-1.0); TOTAL PROTEIN 6.4 g/dL (6.4-8.2)
[2020-07-28 20:10] LABS: MICROSCOPIC INDICATED
--- NOTE | 2020-07-28 20:29 | NUR ---
DR HEALY AT BEDSIDE FOR ASSESSMENT
--- NOTE | 2020-07-28 21:01 | NUR ---
REPORT TO SHABNAM PAUL [facility] TRANSFERED AT THIS TIME
[2020-07-28 21:44] VITALS: BP 135/75
== END 2020-07-28 22:15 | disposition home or self-care (01) ==
LOC: ED 20:52
DX: R60.0 Localized edema (principal); N39.0 Urinary tract infection, site not specified; R06.02 Shortness of breath; E11.65 Type 2 diabetes mellitus with hyperglycemia; E78.00 Pure hypercholesterolemia, unspecified
CPT/HCPCS: 36415; 71045; 80053; 81001; 83880; 85025; 87086; 87147; 99285

== ENCOUNTER 2020-10-13 20:16 | Emergency (ER) | payer OTHER ==
[~2020-10-13] VITALS: Ht 154.9 cm; Wt 55.0 kg
[~2020-10-13 20:16] MED LIST changes: +[UNRECOGNIZED DRUG - OTHER] PO
[2020-10-13] MEDS ORDERED: SODIUM CHLORIDE FLUSH 10ML SYR IVF ONE (21:00)
[2020-10-13] MEDS ORDERED: SODIUM CHLORIDE 0.9% 1,000ML IVBOLUS ONE (21:00)
--- NOTE | 2020-10-13 22:18 | NUR ---
TO WHEELED TO ROOM AT THIS TIME FAMILY REMAINS AT BEDSIDE.
[2020-10-13] MEDS ORDERED: ONDANSETRON 2MG/ML, 2ML IVPush ONE (22:30)
[2020-10-13] MEDS ORDERED: ONDANSETRON 2MG/ML, 2ML ONE (22:30)
--- NOTE | 2020-10-13 22:42 | NUR ---
Patient comes in with complaints of a headache that has been on and off since Saturday. Patient had a lumbar punture done on 10/10. States the head became worse today, and also comes along with nausea. IV established, fluids hung and medicated per JAN. Provider at bedside
[2020-10-13 22:54] LABS: BASOPHILS % (AUTO) 0 % (0-1); EOSINOPHILS % (AUTO) 0 % (1-7); LYMPHOCYTES % (AUTO) 8 % (22-44); MEAN CORPUSCULAR HEMOGLOBIN 29.5 pg (27.0-34.8); MEAN CORPUSCULAR HGB CONC 33.9 g/dL (32.4-35.8); MEAN PLATELET VOLUME 8.3 fL (7.4-10.4); MONOCYTES % (AUTO) 2 % (2-9); NEUTROPHILS % (AUTO) 90 % (42-75); PLATELET COUNT 249 x10^3/uL (130-400); RED BLOOD COUNT 4.37 x10^6/uL (3.82-5.3); RED CELL DISTRIBUTION WIDTH 13.7 % (9.6-15.2)
[2020-10-13] MEDS ORDERED: METOCLOPRAMIDE 5 MG/ML, 2ML ONE (22:57)
[2020-10-13] MEDS ORDERED: DIPHENHYDRAMINE 50 MG/ML, 1ML ONE (22:57)
[2020-10-13 22:59] LABS: ANION GAP 10 mmol/L (5-15); CALCIUM 9.3 mg/dL (8.5-10.1); CHLORIDE 105 mmol/L (98-107)
[2020-10-13] MEDS ORDERED: METOCLOPRAMIDE 5 MG/ML, 2ML IVPush ONE (23:00)
[2020-10-13] MEDS ORDERED: DIPHENHYDRAMINE 50 MG/ML, 1ML IVPush ONE (23:00)
[2020-10-14 00:16] LABS: MD SCAN
[2020-10-14 00:27] LABS: MICROSCOPIC AUTO
[2020-10-14 01:43] VITALS: BP 125/74
== END 2020-10-14 02:27 | disposition home or self-care (01) ==
LOC: ED 10-14 00:34
DX: G97.1 Other reaction to spinal and lumbar puncture (principal); R53.1 Weakness; R11.2 Nausea with vomiting, unspecified; E11.65 Type 2 diabetes mellitus with hyperglycemia; E78.00 Pure hypercholesterolemia, unspecified
CPT/HCPCS: 36415; 80048; 81001; 82962; 85025; 96361; 96374; 96375; 99284; J1200; J2405; J2765; J7030

== ENCOUNTER 2020-11-01 22:25 | Emergency (ER) | payer OTHER ==
[~2020-11-01] VITALS: Ht 154.9 cm; Wt 60.0 kg
--- NOTE | 2020-11-01 23:06 | NUR ---
ASSUMING CARE OF PT. AT THIS TIME.
--- NOTE | 2020-11-01 23:15 | NUR ---
MRI SCREENING FORM FAXED TO MRI. PT. TO ED WITH C/O ESPARZA/NAUSEA X 3 WEEKS. STATES RECEIVED AN LP ABOUT 3 WEEKS AGO AND HAS BEEN HAVING ESPARZA EVER SINCE. PT. DOES REPORT THE ESPARZA'S HAVE BEEN GETTING SLIGHTLY BETTER
[2020-11-02 00:16] LABS: BASOPHILS % (AUTO) 1 % (0-1); EOSINOPHILS % (AUTO) 1 % (1-7); LYMPHOCYTES % (AUTO) 37 % (22-44); MEAN CORPUSCULAR HEMOGLOBIN 29.6 pg (27.0-34.8); MEAN CORPUSCULAR HGB CONC 34.3 g/dL (32.4-35.8); MEAN PLATELET VOLUME 8.2 fL (7.4-10.4); MONOCYTES % (AUTO) 7 % (2-9); NEUTROPHILS % (AUTO) 55 % (42-75); PLATELET COUNT 240 x10^3/uL (130-400); RED BLOOD COUNT 3.99 x10^6/uL (3.82-5.3); RED CELL DISTRIBUTION WIDTH 13.8 % (9.6-15.2)
[2020-11-02 00:17] LABS: MD NO
[2020-11-02 00:24] LABS: ANION GAP 8 mmol/L (5-15); CALCIUM 9.5 mg/dL (8.5-10.1); CHLORIDE 107 mmol/L (98-107); CREATININE 0.89 mg/dL (0.55-1.02)
--- NOTE | 2020-11-02 00:59 | NUR ---
VS UPDATED. PT. DENIES DISCOMFORT AT THIS TIME. NO DISTRESS NOTED.
[2020-11-02] MEDS ORDERED: KETOROLAC 30 MG/1 ML ONE (01:25)
[2020-11-02] MEDS ORDERED: PROMETHAZINE 25 MG/ML, 1ML ONE (01:25)
[2020-11-02] MEDS ORDERED: DIPHENHYDRAMINE 25 MG CAPSULE ONE (01:25)
[2020-11-02] MEDS ORDERED: KETOROLAC 30 MG/1 ML IM ONE (01:30)
[2020-11-02] MEDS ORDERED: PROMETHAZINE 25 MG/ML, 1ML IM ONE (01:30)
[2020-11-02] MEDS ORDERED: DIPHENHYDRAMINE 25 MG CAPSULE PO ONE (01:30)
[2020-11-02 01:50] VITALS: BP 126/61
== END 2020-11-02 02:06 | disposition home or self-care (01) ==
LOC: ED 23:45
DX: R51.9 Headache, unspecified (principal); R42 Dizziness and giddiness; M54.5 Low back pain; E11.65 Type 2 diabetes mellitus with hyperglycemia; E78.00 Pure hypercholesterolemia, unspecified
CPT/HCPCS: 36415; 70551; 72148; 80048; 85025; 96372; 99285; J1885; J2550; Q0163

== ENCOUNTER 2021-04-15 20:47 | Emergency (ER) | payer OTHER ==
[~2021-04-15] VITALS: Ht 154.9 cm; Wt 55.0 kg
[~2021-04-15 20:47] MED LIST changes: +GEMF-31 PO; -GEMF600T8 PO
--- NOTE | 2021-04-15 21:15 | NUR ---
PA at bedside for exam.
--- NOTE | 2021-04-15 21:20 | NUR ---
chlorination operator completed. Pt up to restroom for UA sample with walker and daughter for standby assistance. Pt noted to have steady gait with use of walker.
--- NOTE | 2021-04-15 21:45 | NUR ---
Warm blanket provided for pt at this time and call light remains in reach. Daughter at bedside.
[2021-04-15 21:54] LABS: MICROSCOPIC AUTO
--- NOTE | 2021-04-15 22:05 | NUR ---
Chantal found and brought into pt room.
--- NOTE | 2021-04-15 22:12 | NUR ---
MD at bedside to discuss findings and plan of care.
[2021-04-15] MEDS ORDERED: CEFDINIR 300 MG CAPSULE ONE (22:17)
[2021-04-15] MEDS ORDERED: CEFDINIR 300 MG CAPSULE PO ONE (22:30)
[2021-04-15 22:36] VITALS: BP 136/65
== END 2021-04-15 22:38 | disposition home or self-care (01) ==
LOC: ED 22:32
DX: N30.01 Acute cystitis with hematuria (principal); R30.0 Dysuria; E11.65 Type 2 diabetes mellitus with hyperglycemia; E78.00 Pure hypercholesterolemia, unspecified; R42 Dizziness and giddiness; R51.9 Headache, unspecified
CPT/HCPCS: 81001; 87086; 99283

== ENCOUNTER → 2021-07-27 | Outpatient (CLI) | payer OTHER ==
[~2021-07-27] MED LIST changes: +ALPR1TAB2 PO; -LISI2.5T PO; +LISI2.5T12 PO
[2021-07-27 08:41] LABS: MICROSCOPIC NOT IND
[2021-07-27 08:44] LABS: ALBUMIN 3.6 g/dL (3.4-5.0); ANION GAP 5 mmol/L (5-15); CALCIUM 9.5 mg/dL (8.5-10.1); CHLORIDE 99 mmol/L (98-107)
[2021-07-27 08:47] LABS: BASOPHILS % (AUTO) 1 % (0-1); EOSINOPHILS % (AUTO) 1 % (1-7); LYMPHOCYTES % (AUTO) 27 % (22-44); MEAN CORPUSCULAR HEMOGLOBIN 29.3 pg (27.0-34.8); MEAN CORPUSCULAR HGB CONC 34.3 g/dL (32.4-35.8); MEAN PLATELET VOLUME 8.9 fL (7.4-10.4); MONOCYTES % (AUTO) 7 % (2-9); NEUTROPHILS % (AUTO) 65 % (42-75); PLATELET COUNT 226 x10^3/uL (130-400); RED BLOOD COUNT 4.58 x10^6/uL (3.82-5.3); RED CELL DISTRIBUTION WIDTH 13.1 % (9.6-15.2)
[2021-07-27 09:11] LABS: % IRON SATURATION 17 % (20-55); ALANINE AMINOTRANSFERASE 22 U/L (12-78); ALKALINE PHOSPHATASE 111 U/L (45-117); BILIRUBIN,TOTAL 0.4 mg/dL (0.2-1.0); CREATININE 0.83 mg/dL (0.55-1.02); FOLATE LEVEL 12.2 ng/mL (3.1-17.5); FREE T4 (FREE THYROXINE) 1.11 ng/dL (0.76-1.46); IRON LEVEL 72 mcg/dL (50-170); TOTAL IRON BINDING CAPACITY 421 mcg/dL (250-450); TOTAL PROTEIN 8.8 g/dL (6.4-8.2); TRANSFERRIN 367 mg/dL (200-360)
== END | disposition home or self-care (01) ==
LOC: LAB 07:57
PROVIDERS: ATTEND Nurse Practitioner Primary Care
DX: Z13.220 Encounter for screening for lipoid disorders (principal); E10.9 Type 1 diabetes mellitus without complications; E78.2 Mixed hyperlipidemia; E55.9 Vitamin D deficiency, unspecified; E61.1 Iron deficiency; I95.9 Hypotension, unspecified; N39.0 Urinary tract infection, site not specified; E78.01 Familial hypercholesterolemia; R79.9 Abnormal finding of blood chemistry, unspecified; E03.9 Hypothyroidism, unspecified; R53.1 Weakness; M85.80 Other specified disorders of bone density and structure, unspecified site; G25.82 Stiff-man syndrome; M79.601 Pain in right arm; Z71.3 Dietary counseling and surveillance; Z79.52 Long term (current) use of systemic steroids; Z79.899 Other long term (current) drug therapy
CPT/HCPCS: 36415; 80053; 80061; 81003; 82306; 82607; 82652; 82728; 82746; 82784; 82785; 83036; 83540; 83550; 84100; 84425; 84439; 84443; 84466; 84481; 85025